=== PATIENT | male | born 1960 | race Caucasian/White ===

== ENCOUNTER → 2024-01-13 06:28 | Day surgery (SDC) | payer BC, SELFPAY | LOC: GI 06:28 | PROVIDERS: ATTENDING PHYSICIAN Internal Medicine Gastroenterology | DX: Z12.11 Encounter for screening for malignant neoplasm of colon (principal); K64.0 First degree hemorrhoids; K56.2 Volvulus; Q43.8 Other specified congenital malformations of intestine | CPT/HCPCS: G0105 ==

== ENCOUNTER → 2024-05-22 10:27 | Outpatient (REF) | payer BC, SELFPAY | LOC: RAD 10:27 | PROVIDERS: ATTENDING PHYSICIAN Nurse Practitioner Family | DX: R10.30 Lower abdominal pain, unspecified (principal) | CPT/HCPCS: 76882 ==

== ENCOUNTER → 2024-08-04 14:20 | Outpatient (REF) | payer BC, SELFPAY | LOC: RAD 14:20 | PROVIDERS: ATTENDING PHYSICIAN Hospitalist | DX: R06.09 Other forms of dyspnea (principal) | CPT/HCPCS: 71046 ==

== ENCOUNTER → 2024-08-12 11:23 | Outpatient (REF) | payer BC, SELFPAY | LOC: HWRAD 11:23 | PROVIDERS: ATTENDING PHYSICIAN Hospitalist | DX: R09.02 Hypoxemia (principal) | CPT/HCPCS: 71250 ==

== ENCOUNTER → 2024-10-07 11:56 | Outpatient (REF) | payer BC, SELFPAY | LOC: DHCBC/DCA 11:56 | PROVIDERS: ATTENDING PHYSICIAN Internal Medicine Cardiovascular Disease; FAMILY PHYSICIAN Internal Medicine | DX: R06.09 Other forms of dyspnea (principal); R94.31 Abnormal electrocardiogram [ECG] [EKG] | CPT/HCPCS: 78452; 93017; A9500 ==

== ENCOUNTER → 2024-10-21 10:25 | Outpatient (REF) | payer BC, SELFPAY | LOC: HWRCS 10:25 | PROVIDERS: ATTENDING PHYSICIAN Internal Medicine Cardiovascular Disease; FAMILY PHYSICIAN Internal Medicine | DX: R06.09 Other forms of dyspnea (principal); R94.31 Abnormal electrocardiogram [ECG] [EKG] | CPT/HCPCS: 93306 ==